=== PATIENT | female | born 1995 | race Caucasian/White ===

== ENCOUNTER → 2021-06-19 | Outpatient (REF) | LOC: M LABSMTC 11:43 | PROVIDERS: ATTEND Family Medicine | DX: Z11.52 Encounter for screening for COVID-19 (principal) ==

== ENCOUNTER → 2021-12-03 | Outpatient (REF) | LOC: M LABSMTC 11:32 | PROVIDERS: ATTEND Family Medicine | DX: Z11.52 Encounter for screening for COVID-19 (principal) ==